=== PATIENT | male | born 1965 | race Two or more races ===

== ENCOUNTER 2020-10-18 10:44 | Emergency (ER) | payer OTHER ==
[2020-10-18] MEDS ORDERED: Sodium Chloride 0.9% 2.5 ML Syringe FLUSH PRN (11:27)
[2020-10-18] MEDS ORDERED: Ondansetron 4 MG/2 ML SDV IVPUSH ONE (11:27)
[2020-10-18] MEDS ORDERED: Sodium Chloride 0.9% 10 ML Syringe FLUSH PRN (11:27)
--- NOTE | 2020-10-18 11:33 | EDM.PDOC ---
ED HPI GENERAL MEDICAL PROBLEM - General Chief Complaint: General Stated Complaint: BODY ACHES/NAUSEA/VOMTTING/NUMBNESS IN BELLY/WEAK Time Seen by Provider: 10/18/20 10:45 - History of Present Illness INITIAL COMMENTS - FREE TEXT/NARRATIVE: History of present illness: [] Is here from [place] visiting his daughter and son-in-law. He within the last few weeks has had a visit there he started him on her own Flagyl for partial small bowel obstruction and possible peritoneal infection. Patient complains of abdominal pain but primarily complains of weakness, numbness in his lower extremities below the mid tib-fib, generally feeling lousy. Today he has vomited a few times. His appetite is gone. [place] the patient drinks excessively for a long time according to him. He has recently stopped he says he has been to AA in the past but he feels like he is able to stop on his own now. Patient is complained of foot tingling numbing and burning for a long time but never been treated for neuropathy. Review of systems: As per history of present illness and below otherwise all systems reviewed and negative. Past medical history: As per history of present illness and as reviewed below otherwise noncontributory. Surgical history: As per history of present illness and as reviewed below otherwise noncontributory. Social history: No reported history of drug or alcohol abuse. Family history: As per history of present illness and as reviewed below otherwise noncontributory. Physical exam: Constitutional - well developed, well-nourished and in no acute distress HEENT - normocephalic, no evidence of trauma - external nose and mouth normal - no mass in neck and no JVD - mucosae moist EYES - full EOM, PERRL, no icterus - no evidence of inflammation, injection, or drainage Respiratory - no respiratory distress, equal bilateral expansion, lungs clear to auscultation and no abnormal lung sounds Cardiovascular - Regular Rhythm with S1 and S2 appreciated and no murmur, gallop or rub. GI - abdomen soft without distension or organomegaly - normal bowel sounds - no guard or rebound Musculoskeletal no gross deformity of long bones or joints - no tenderness, swelling or edema Neurologic - Alert and oriented times four - CN II-XII grossly intact - motor sensory and coordination symmetrically normal Psychiatric - appropriate mood and affect with normal thought content Hematologic - No petechiae or purpura - mucosa appropriate color and sclera not pale - normal nail bed color and refill Integument -abrasion over the left knee appears to be partially healed. No rash or evidence of trauma - normal turgor Diagnostics: [] Therapeutics: [] Impression: [] Plan: [] Definitive disposition and diagnosis as appropriate pending reevaluation and review of above. general Pain Score (Numeric/FACES): 6 - Related Data Allergies Allergy/AdvReac Type Severity Reaction Status Date / Time No Known Allergies Allergy Verified 10/18/20 11:20 Home Meds: Home Meds Gabapentin [Neurontin] 300 mg PO TID PRN #90 cap 10/18/20 [Rx] Magnesium Chloride 128 mg PO BID #120 tablet. 10/18/20 [Rx] Past Medical History Cardiovascular History: Reports: Hypertension - Past Surgical History Other GI Surgeries/Procedures: gastric sleeve Other Musculoskeletal Surgeries/Procedures:: knee replacement Social & Family History - Tobacco Use Tobacco Use Status *Q: Never Tobacco User - Alcohol Use Days Per Week of Alcohol Use: 7 Number of Drinks Per Day: 5 Total Drinks Per Week: 35 - Recreational Drug Use Recreational Drug Use: No ED ROS GENERAL - Review of Systems Review Of Systems: Comprehensive ROS is negative, except as noted in HPI. ED EXAM, GENERAL - Physical Exam Exam: See Below Free Text/Narrative:: My physical exam is in the HPI #1 Interpretation EKG Interpretation Comments: The EKG was done at 12 PM and read at 1205. Sinus rhythm heart rate 77. NV interval 170 and [place] VII. QT 509. QRS ST and T. No prior. Impression prolonged QT otherwise normal Course - Vital Signs Last Recorded V/S: Last Vital Signs Temp 35.4 C L 10/18/20 11:15 Pulse 108 H 10/18/20 11:15 Resp 18 10/18/20 11:15 BP 116/84 10/18/20 11:15 Pulse Ox 96 10/18/20 11:15 - Orders/Labs/Meds Orders: Active Orders 24 hr Category Date Time Status EKG Documentation Completion [RC] AM Care 10/18/20 11:27 Active Sodium Chloride 0.9% [Normal Saline] 1,000 ml Med 10/18/20 11:45 Active IV ASDIRECTED Sodium Chloride 0.9% [Saline Flush] Med 10/18/20 11:27 Active 10 ml FLUSH ASDIRECTED PRN Sodium Chloride 0.9% [Saline Flush] Med 10/18/20 11:27 Active 2.5 ml FLUSH ASDIRECTED PRN Saline Lock Insert [OM.PC] Stat Oth 10/18/20 11:27 Ordered Medication Orders Sodium Chloride (Normal Saline) 1,000 mls @ 125 mls/hr IV ASDIRECTED ROMY Last Admin: 10/18/20 11:44 Dose: 125 mls/hr Documented by: MYRTLE Sodium Chloride (Saline Flush) 10 ml FLUSH ASDIRECTED PRN PRN Reason: Keep Vein Open Last Admin: 10/18/20 11:42 Dose: 10 ml Documented by: MYRTLE Sodium Chloride (Saline Flush) 2.5 ml FLUSH ASDIRECTED PRN PRN Reason: Keep Vein Open Last Admin: 10/18/20 11:41 Dose: 2.5 ml Documented by: MYRTLE Labs: Laboratory Tests 10/18/20 10/18/20 10/18/20 Range/Units 11:36 11:36 11:36 WBC Cancelled 8.11 RBC Cancelled 3.42 L Hgb Cancelled 11.5 L Hct Cancelled 35.9 L MCV Cancelled 105.0 H MCH Cancelled 33.6 H MCHC Cancelled 32.0 RDW Std Deviation Cancelled 57.9 RDW Coeff of Twyla Cancelled 15 Plt Count Cancelled 400 MPV Cancelled 10.90 Neut % (Auto) Cancelled 66.8 Lymph % (Auto) Cancelled 18.6 [place] % (Auto) Cancelled 13.6 Eos % (Auto) Cancelled 0.5 Baso % (Auto) Cancelled 0.5 Neut # (Auto) Cancelled 5.4 Lymph # (Auto) Cancelled 1.5 [place] # (Auto) Cancelled 1.1 H Eos # (Auto) Cancelled 0.0 Baso # (Auto) Cancelled 0.0 Add Manual Diff Cancelled Neutrophils % (Manual) Cancelled Band Neutrophils % Cancelled Lymphocytes % (Manual) Cancelled Atypical Lymphs % Cancelled Immat Monocytes % (Man) Cancelled Monocytes % (Manual) Cancelled Eosinophils % (Manual) Cancelled Basophils % (Manual) Cancelled Metamyelocytes % Cancelled Myelocytes % Cancelled Promyelocytes % Cancelled Blast Cells % Cancelled Plasma Cell % (Manual) Cancelled Nucleated RBC % Cancelled 0.0 Immature Gran # Cancelled Absolute Neutrophils Cancelled Absolute Seg Neuts Cancelled Band Neutrophils # Cancelled Lymphocytes # (Manual) Cancelled Monocytes # (Manual) Cancelled Eosinophils # (Manual) Cancelled Basophils # (Manual) Cancelled Absolute Metamyelocyte Cancelled Absolute Myelocytes Cancelled Absolute Promyelocytes Cancelled Absolute Plasma Cells Cancelled Nucleated RBCs Cancelled Nucleated RBCs # Cancelled 0 Differential Comment Cancelled Pathologist Review Cancelled Bilobed Neuts Cancelled Hypersegmented Neuts Cancelled Variant Lymphocytes Cancelled Atypical Lymphocytes Cancelled Abnormal Lymphocytes Cancelled Plasmacytoid Lymphs Cancelled Reactive Lymphocytes Cancelled Vacuolated Monocytes Cancelled Absolute Blast Cells Cancelled Smudge Cells Cancelled Toxic Granulation Cancelled Dohle Bodies Cancelled Pelger-Huet Cells Cancelled Megakaryocytic Frags Cancelled Leonard Rods Cancelled WBC Morphology Comment Cancelled Platelet Estimate Cancelled Hypogranular Platelets Cancelled Platelet Agranulation Cancelled Clumped Platelets Cancelled Giant Platelets Cancelled Platelet Satelliting Cancelled Bizarre Platelets Cancelled Plt Morphology Comment Cancelled Polychromasia Cancelled Hypochromasia Cancelled Poikilocytosis Cancelled Basophilic Stippling Cancelled Anisocytosis Cancelled Microcytosis Cancelled Macrocytosis Cancelled Spherocytes Cancelled Micro Spherocytes Cancelled Pappenheimer Bodies Cancelled Siderocytes Cancelled Sickle Cells Cancelled Target Cells Cancelled Tear Drop Cells Cancelled Ovalocytes Cancelled Stomatocytes Cancelled Helmet Cells Cancelled [place] Bodies Cancelled [place] Rings Cancelled [place] Cells Cancelled Elliptocytes Cancelled Acanthocytes (Spur) Cancelled Rouleaux Cancelled Hemoglobin C Crystals Cancelled Schistocytes Cancelled RBC Morph Comment Cancelled Smear Path Review Cancelled David Bodies Cancelled Sodium 142 (136-148) mmol/L Potassium 2.9 L (3.5-5.1) mmol/L Chloride 102 (98-107) mmol/L Carbon Dioxide 30.2 (21.0-32.0) mmol/L BUN 6 L (7.0-18.0) mg/dL Creatinine 1.1 (0.8-1.3) mg/dL Est Cr Clr Drug Dosing 93.16 mL/min Estimated GFR (MDRD) > 60.0 ml/min Glucose 109 H (74-106) mg/dL Calcium 8.0 L (8.5-10.1) mg/dL Magnesium 1.3 L (1.8-2.4) mg/dL Total Bilirubin 1.6 H (0.2-1.0) mg/dL AST 118 H (15-37) IU/L ALT 26 (14-63) IU/L Alkaline Phosphatase 91 (46-116) U/L Troponin I < 0.050 (0.000-0.056) ng/mL Total Protein 7.2 (6.4-8.2) g/dL Albumin 3.1 L (3.4-5.0) g/dL Globulin 4.1 H (2.6-4.0) g/dL Albumin/Globulin Ratio 0.8 L (0.9-1.6) Lipase 146 (73-393) U/L Urine Color Urine Appearance Urine pH (5.0-8.0) Ur Specific [place] (1.001-1.035) Urine Protein (NEGATIVE) mg/dL Urine Glucose (UA) (NEGATIVE) mg/dL Urine Ketones (NEGATIVE) mg/dL Urine Occult Blood (NEGATIVE) Urine Nitrite (NEGATIVE) Urine Bilirubin (NEGATIVE) Urine Urobilinogen (<2.0) EU/dL Ur Leukocyte Esterase (NEGATIVE) Bld Parasites Quantity Cancelled Slides for Path Review Cancelled 10/18/20 Range/Units 13:28 WBC RBC Hgb Hct MCV MCH MCHC RDW Std Deviation RDW Coeff of Twyla Plt Count MPV Neut % (Auto) Lymph % (Auto) [place] % (Auto) Eos % (Auto) Baso % (Auto) Neut # (Auto) Lymph # (Auto) [place] # (Auto) Eos # (Auto) Baso # (Auto) Add Manual Diff Neutrophils % (Manual) Band Neutrophils % Lymphocytes % (Manual) Atypical Lymphs % Immat Monocytes % (Man) Monocytes % (Manual) Eosinophils % (Manual) Basophils % (Manual) Metamyelocytes % Myelocytes % Promyelocytes % Blast Cells % Plasma Cell % (Manual) Nucleated RBC % Immature Gran # Absolute Neutrophils Absolute Seg Neuts Band Neutrophils # Lymphocytes # (Manual) Monocytes # (Manual) Eosinophils # (Manual) Basophils # (Manual) Absolute Metamyelocyte Absolute Myelocytes Absolute Promyelocytes Absolute Plasma Cells Nucleated RBCs Nucleated RBCs # Differential Comment Pathologist Review Bilobed Neuts Hypersegmented Neuts Variant Lymphocytes Atypical Lymphocytes Abnormal Lymphocytes Plasmacytoid Lymphs Reactive Lymphocytes Vacuolated Monocytes Absolute Blast Cells Smudge Cells Toxic Granulation Dohle Bodies Pelger-Huet Cells Megakaryocytic Frags Leonard Rods WBC Morphology Comment Platelet Estimate Hypogranular Platelets Platelet Agranulation Clumped Platelets Giant Platelets Platelet Satelliting Bizarre Platelets Plt Morphology Comment Polychromasia Hypochromasia Poikilocytosis Basophilic Stippling Anisocytosis Microcytosis Macrocytosis Spherocytes Micro Spherocytes Pappenheimer Bodies Siderocytes Sickle Cells Target Cells Tear Drop Cells Ovalocytes Stomatocytes Helmet Cells [place] Bodies [place] Rings Kul[place]inder Cells Elliptocytes Acanthocytes (Spur) Rouleaux Hemoglobin C Crystals Schistocytes RBC Morph Comment Smear Path Review David Bodies Sodium (136-148) mmol/L Potassium (3.5-5.1) mmol/L Chloride (98-107) mmol/L Carbon Dioxide (21.0-32.0) mmol/L BUN (7.0-18.0) mg/dL Creatinine (0.8-1.3) mg/dL Est Cr Clr Drug Dosing mL/min Estimated GFR (MDRD) ml/min Glucose (74-106) mg/dL Calcium (8.5-10.1) mg/dL Magnesium (1.8-2.4) mg/dL Total Bilirubin (0.2-1.0) mg/dL AST (15-37) IU/L ALT (14-63) IU/L Alkaline Phosphatase (46-116) U/L Troponin I (0.000-0.056) ng/mL Total Protein (6.4-8.2) g/dL Albumin (3.4-5.0) g/dL Globulin (2.6-4.0) g/dL Albumin/Globulin Ratio (0.9-1.6) Lipase (73-393) U/L Urine Color YELLOW Urine Appearance CLEAR Urine pH 6.0 (5.0-8.0) Ur Specific [place] 1.010 (1.001-1.035) Urine Protein NEGATIVE (NEGATIVE) mg/dL Urine Glucose (UA) NEGATIVE (NEGATIVE) mg/dL Urine Ketones NEGATIVE (NEGATIVE) mg/dL Urine Occult Blood NEGATIVE (NEGATIVE) Urine Nitrite NEGATIVE (NEGATIVE) Urine Bilirubin NEGATIVE (NEGATIVE) Urine Urobilinogen 0.2 (<2.0) EU/dL Ur Leukocyte Esterase NEGATIVE (NEGATIVE) Bld Parasites Quantity Slides for Path Review Meds: Medications Generic Name Dose Route Start Last Admin Trade Name Freq PRN Reason Stop Dose Admin Sodium Chloride 1,000 mls @ 125 mls/hr 10/18/20 11:45 10/18/20 11:44 Normal Saline IV 125 mls/hr ASDIRECTED ROMY Administration Sodium Chloride 10 ml 10/18/20 11:27 10/18/20 11:42 Saline Flush FLUSH 10 ml ASDIRECTED PRN Administration Keep Vein Open Sodium Chloride 2.5 ml 10/18/20 11:27 10/18/20 11:41 Saline Flush FLUSH 2.5 ml ASDIRECTED PRN Administration Keep Vein Open Discontinued Medications Generic Name Dose Route Start Last Admin Trade Name Freq PRN Reason Stop Dose Admin Folic Acid 1 mg 10/18/20 12:36 10/18/20 12:55 Folic Acid PO 10/18/20 12:37 1 mg ONETIME ONE Administration Gabapentin 300 mg 10/18/20 12:45 10/18/20 12:55 Neurontin PO 10/18/20 12:46 300 mg ONETIME ONE Administration Magnesium Sulfate 1 gm/ Sodium 52 mls @ 104 mls/hr 10/18/20 12:44 10/18/20 13:27 Chloride IV 10/18/20 13:13 104 mls/hr STAT STA Administration Ondansetron HCl 4 mg 10/18/20 11:27 10/18/20 11:44 Zofran IVPUSH 10/18/20 11:28 4 mg ONETIME ONE Administration Potassium Chloride 40 meq 10/18/20 12:34 10/18/20 12:55 Klor-Con M20 PO 10/18/20 12:35 40 meq ONETIME ONE Administration Thiamine HCl 100 mg 10/18/20 12:36 10/18/20 12:56 Vitamin B-1 PO 10/18/20 12:37 100 mg ONETIME ONE Administration Departure - Departure Time of Disposition: 14:07 Disposition: Home, Self-Care 01 Condition: Good Clinical Impression: Hypomagnesemia, Hypokalemia, Peripheral neuropathy, Gastritis, Hypokalemia - Discharge Information Prescriptions: Magnesium Chloride 128 mg PO BID #120 tablet. Gabapentin [Neurontin] 300 mg PO TID PRN #90 cap PRN Reason: Pain (Moderate 4-6) Referrals: José Miguel Simons MD [Primary Care Provider] - Forms: ED Department Discharge Additional Instructions: [facility] - Neurology Professional Building [address], [address] [place] [address] [facility] - Primary Care [address] [place] [address] [facility] [address] [place] [id number] I would suggest you try dietary supplementation to correct your potassium deficiency, make sure you are getting plenty of vitamins to include folate and thiamine. Supplement magnesium with the prescription and get a neurology evaluation as soon as possible to verify the diagnosis for which we are giving the gabapentin, which is peripheral neuropathy. The gabapentin in the past similar magnesium supplementation should not be taken at the same time as one may prevent the effectiveness of the other. The following information is given to patients seen in the emergency department who are being discharged to home. This information is to outline your options for follow-up care. We provide all patients seen in our emergency department with a follow-up referral. The need for follow-up, as well as the timing and circumstances, are variable depending upon the specifics of your emergency department visit. If you don't have a primary care physician on staff, we will provide you with a referral. We always advise you to contact your personal physician following an emergency department visit to inform them of the circumstance of the visit and for follow-up with them and/or the need for any referrals to a consulting specialist. The emergency department will also refer you to a specialist when appropriate. This referral assures that you have the opportunity for follow-up care with a specialist. All of these measure are taken in an effort to provide you with optimal care, which includes your follow-up. Under all circumstances we always encourage you to contact your private physician who remains a resource for coordinating your care. When calling for follow-up care, please make the office aware that this follow-up is from your recent emergency room visit. If for any reason you are refused follow-up, please contact the [facility] Emergency Department at and asked to speak to the emergency department charge nurse. Sepsis Event Note (ED) - Evaluation Sepsis Screening Result: Possible Sepsis Risk - Focused Exam Vital Signs: Vital Signs Temp Pulse Resp BP Pulse Ox 10/18/20 11:15 35.4 C L 108 H 18 116/84 96 - My Orders Last 24 Hours: My Active Orders 10/18/20 11:27 EKG Documentation Completion [RC] AM Sodium Chloride 0.9% [Saline Flush] 10 ml FLUSH ASDIRECTED PRN Sodium Chloride 0.9% [Saline Flush] 2.5 ml FLUSH ASDIRECTED PRN Saline Lock Insert [OM.PC] Stat 10/18/20 11:45 Sodium Chloride 0.9% [Normal Saline] 1,000 ml IV ASDIRECTED - Assessment/Plan Last 24 Hours: My Active Orders 10/18/20 11:27 EKG Documentation Completion [RC] AM Sodium Chloride 0.9% [Saline Flush] 10 ml FLUSH ASDIRECTED PRN Sodium Chloride 0.9% [Saline Flush] 2.5 ml FLUSH ASDIRECTED PRN Saline Lock Insert [OM.PC] Stat 10/18/20 11:45 Sodium Chloride 0.9% [Normal Saline] 1,000 ml IV ASDIRECTED
[2020-10-18] MEDS ORDERED: Sodium Chloride 0.9% 1,000 ML IV SCH (11:45)
[2020-10-18 12:17] LABS: BLOOD UREA NITROGEN,BUN 6 mg/dL (7.0-18.0); CARBON DIOXIDE,CO2 30.2 mmol/L (21.0-32.0); CHLORIDE,CL 102 mmol/L (98-107); GLUCOSE RANDOM 109 mg/dL (74-106); LIPASE 146 U/L (73-393); POTASSIUM,K 2.9 mmol/L (3.5-5.1); SODIUM,NA 142 mmol/L (136-148)
[2020-10-18] MEDS ORDERED: Potassium Chloride 20 MEQ Tab.ER PO ONE (12:34)
[2020-10-18] MEDS ORDERED: Magnesium Sulfate (4.06 MEQ/ML) 5 GM/10 ML SDV IV STA (12:35)
[2020-10-18] MEDS ORDERED: Folic Acid 1 MG Tab PO ONE (12:36)
[2020-10-18] MEDS ORDERED: Thiamine 100 MG Tab PO ONE (12:36)
[2020-10-18] MEDS ORDERED: Gabapentin 300 MG Cap PO ONE (12:45)
== END 2020-10-18 14:27 | disposition home or self-care (01) ==
LOC: MW.ED 10:44
DX: K29.70 Gastritis, unspecified, without bleeding (principal); E83.42 Hypomagnesemia; E87.6 Hypokalemia; G62.9 Polyneuropathy, unspecified; I10 Essential (primary) hypertension; Z79.899 Other long term (current) drug therapy
CPT/HCPCS: 36415; 80053; 81003; 83690; 83735; 84484; 85025; 93005; 96365; 96375; 99285; A9270; J2405; J3475; J7030